=== PATIENT | female | born 1975 | race Caucasian/White ===

== ENCOUNTER 2025-02-23 20:16 | Emergency (ER) | payer OTHER, MEDICAID ==
[~2025-02-23] VITALS: Ht 162.6 cm; Wt 95.9 kg
[~2025-02-23 20:16] MED LIST: ATOR10TA52 PO; BACL-63 PO; FAMO20TA10 PO; HYDR50TA69 PO; LURA40TA2 PO; MAGN400T40 PO; MORP30CA31 PO; NYS15PW TOP; ONDA-144 PO; PROP80CA42 PO; RIZA10TA50 OR; THIA250T7 PO; TRAM50TA2 PO; TRAZ-228 PO; [UNRECOGNIZED DRUG - CODE] PO; [UNRECOGNIZED DRUG - CODE] PO
--- NOTE | 2025-02-23 20:38 | ECG ---
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
[2025-02-23] MEDS: MORPHINE SULFATE INJ 2 MG/ml SYRG IV ONE (20:45)
[2025-02-23 20:49] LABS: Hematocrit 39.9 % (36.0-46.0); Hemoglobin 13.5 g/dL (12.2-16.2); Mean Corpuscular Hemoglobin 30.9 pg (28.0-32.0); Mean Corpuscular Volume 91.3 fL (80.0-100.0); Nucleated Red Blood Cells % 0.1 %
--- NOTE | 2025-02-23 21:02 | ED.PDOC ---
History of Present Illness HPI Comments 49 year old female with PMHx HTN, HLD, bipolar disorder, presents to the ED with a chief complaint of chest pain onset today around 18:30. Per EMS, patient was experiencing chest pain, called 911. Patient had EKG done 2 days ago prior to spinal ablation procedure, showed possible RT side blockage, was placed on beta vick. Patient states she took beta vick, 15 minutes after began experiencing chest pain described as pressure sensation, rates pain 8/10, aspirin was given by EMS in route to ED, pain improved to 5/10, She is currently experiencing shortness of breath, dizziness, nausea. Denies cough, cold,congestion, headache, blurred vision, numbness/tingling. No other symptoms or modifying factors present at this time. PHYSICAL EXAM: General: Awake, alert and oriented. No acute distress. Skin: Skin in warm, dry and intact. Appropriate color for ethnicity. HEENT: The head is normocephalic and atraumatic. Conjunctivae are clear without exudates or hemorrhage. Sclera is non-icteric. Eyelids are normal in appearance without swelling or lesions. Oral mucosa is pink and moist Neck: The neck is supple with normal range of motion. No JVD. Cardiac: Heart rate and rhythm are normal. No murmurs, gallops, or rubs are auscultated. Respiratory: No signs of respiratory distress. Lung sounds are clear in all lobes bilaterally without rales, rhonchi, or wheezes. Abdominal: Abdomen is soft, non-tender without distention, guarding or rigidity. Bowel sounds are present and normoactive in all four quadrants. Extremities: Upper and lower extremities are atraumatic in appearance without deformity or edema. Neurological: The patient is awake, alert and oriented to person, place, and time with normal speech. Speech is clear. There is no facial asymmetry. Psychiatric: Appropriate mood and affect. Good judgement and insight. REVIEW OF SYSTEMS: General: No fever, no chills, or fatigue HEENT: No sore throat, no earache, no congestion, no neck pain. Cardiac: chest pain. No palpitations. Lungs: shortness of breath, no cough. GI: nausea. no vomiting, no diarrhea, no constipation, no abdominal pain : No dysuria, frequency, or urgency. No hematuria. Musculoskeletal: No joint pain , no joint swelling, no extremity edema. Skin: No rash, no itching. Neuro: Dizziness. No headache, no weakness (And as sated in HPI) Chief Complaint: Chest Pain Time Seen by MD: 20:24 Primary Care Provider: SUPRIYA Reviewed Notes: Medications, Allergies Allergies: Coded Allergies: Acetaminophen (Unverified Allergy, Unknown, 11/08/14) Amoxicillin (Unverified Allergy, Unknown, 11/08/14) Hydrocodone (Unverified Allergy, Unknown, 11/08/14) Hydromorphone (Unverified Allergy, Unknown, 11/08/14) Valproic Acid (Unverified Allergy, Unknown, 11/08/14) Home Meds Reported Medications Norgestrel & Ethinyl Estradiol (Cryselle-28) 28 Tabs Tab, 1 TAB PO DAILY, #28 TAB 11 Refills 11/08/14 Nystatin (Mycostatin) 1 Applic Ap, 1 APPLIC TOP 11/08/14 Magnesium Oxide (MAGNESIUM OXIDE) 400 Mg Tab, 1 TAB PO DAILY, #30 TAB 5 Refills 11/08/14 Ondansetron (Zofran) 4 Mg Tab, 1 TAB PO Q6HR, #20 TAB 11/08/14 Atorvastatin Calcium (ATORVASTATIN CALCIUM) 10 Mg Tab, 1 TAB PO DAILY, #30 TAB 5 Refills 11/08/14 Propranolol Hcl (Innopran Xl) 80 Mg Cap, 10 MG PO, CAP 11/08/14 Trazodone Hcl (Trazodone Hcl) 100 Mg Tab, 1 TAB PO QPM, #30 TAB 1 Refill 11/08/14 Baclofen (ED BACLOFEN) 10 Mg Tab, 1 TAB PO TID, #90 TAB 2 Refills 11/08/14 Morphine Sulfate (MORPHINE SULFATE ER) 30 Mg Cap, 30 MG PO DAILY, CAP 11/08/14 Famotidine (PEPCID TABLET) 20 Mg Tb, 1 TAB PO BID, #60 TAB 5 Refills 11/08/14 Zolpidem & Dietary Management (GABAZOLPIDEM-5) 5 Mg Sherif, 5 MG PO HS 11/08/14 Tramadol Hcl (Tramadol Hcl) 50 Mg Tab, 50 MG PO Q8HP PRN for BREAKTHROUGH PAIN, TAB 11/08/14 Hydroxyzine Hcl (Hydroxyzine Hcl) 50 Mg Tab, 1 TAB PO TID, #90 TAB 2 Refills 11/08/14 Lurasidone Hydrochloride (LATUDA) 40 Mg Tab, 40 MG PO DAILY, TAB 11/08/14 Thiamine Hcl (Vitamin B1) 250 Mg Tab, 250 MG PO, TAB 11/08/14 Rizatriptan Benzoate (RIZATRIPTAN BENZOATE) 10 Mg Tab, 10 MG OR, TAB 11/08/14 Information Source: Patient, Emergency Med Personnel Mode of Arrival: EMS Severity: Moderate Timing: Hours Duration: Since onset Prehospital treatment: Other (aspirin) Past Medical History PAST MEDICAL HISTORY: Anxiety, Depression, High Lipids Surgical History: Cholecystectomy, 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 Was a procedure done?: No Differential Dx Considerations may include: Differential diagnoses considered include acute ischemic coronary syndrome, aortic dissection, cardiac tamponade, mediastinitis, pulmonary embolus, pneumothorax, tension pneumothorax, esophageal rupture, coronary artery vasospasm, myocarditis, pericarditis, pneumonia, pulmonary edema, esophageal tear, pancreatitis, aortic stenosis, dilated cardiomyopathy, hypertrophic cardiomyopathy, mitral valve prolapse, malignancy, pleuritis, pneumomediastinum, primary pulmonary hypertension, cholecystitis, esophageal spasm, esophagus, gastritis, GERD, peptic ulcer disease, costochondritis, fibromyalgia, rib fracture, herpes zoster, radicular syndromes, thoracic outlet syndrome, somatization. X-Ray, Labs, Meds, VS Vital Signs Date Time Temp Pulse Resp B/P (MAP) Pulse Ox O2 Delivery O2 Flow Rate FiO2 02/23/25 21:32 85 02/23/25 20:20 98.2 96 14 118/74 99 98.2 02/23/25 20:18 96 Lab Test 02/23/25 21:25 02/23/25 20:29 Range/Units Troponin I High Sensitivity 6 5 </=34 ng/L White Blood Count 6.6 4.4-10.8 10^3/uL Red Blood Count 4.36 4.0-5.20 10^6/uL Hemoglobin 13.5 12.2-16.2 g/dL Hematocrit 39.9 36.0-46.0 % Mean Corpuscular Volume 91.3 80.0-100.0 fL Mean Corpuscular Hemoglobin 30.9 28.0-32.0 pg Mean Corpuscular Hemoglobin Concent 33.9 32.0-36.0 g/dL Red Cell Distribution Width 13.1 11.8-14.3 % Platelet Count 240 140-450 10^3/uL Mean Platelet Volume 8.8 6.9-10.8 fL Neutrophils (%) (Auto) 58.7 37.0-80.0 % Lymphocytes (%) (Auto) 29.9 10.0-50.0 % Monocytes (%) (Auto) 7.3 0.0-12.0 % Eosinophils (%) (Auto) 3.5 0.0-7.0 % Basophils (%) (Auto) 0.6 0.0-2.0 % Neutrophils # (Auto) 3.9 1.6-8.6 10 ^3/uL Lymphocytes # (Auto) 2.0 0.4-5.4 10 ^3/uL Monocytes # (Auto) 0.5 0-1.3 10 ^3/uL Eosinophils # (Auto) 0.2 0-0.8 10 ^3/uL Basophils # (Auto) 0 0-0.2 10 ^3/uL Nucleated Red Blood Cells 0.1 % Sodium Level 141 136-145 mmol/L Potassium Level 3.4 L 3.5-5.1 mmol/L Chloride Level 104 98-107 mmol/L Carbon Dioxide Level 26 20-31 mmol/L Anion Gap 11 5-15 Blood Urea Nitrogen 12 9-23 mg/dL Creatinine 0.92 0.550-1.02 mg/dL Glomerular Filtration Rate Calc 76 >90 mL/min BUN/Creatinine Ratio 13.0 10.0-20.0 Serum Glucose 86 74-106 mg/dL Calcium Level 9.7 8.7-10.4 mg/dL B-Type Natriuretic Peptide 6.74 0-100 pg/mL [address] [address] Ph: [phone] DIAGNOSTIC IMAGING Diagnostic Imaging Report : [id number] Signed PATIENT: KARIME GAMA ACCT: [id number] UNIT: [id number] : 1975 LOC: ER ROOM / BED: / AGE / SEX: 49 / F ADM STATUS: REG ER SERVICE 38 ORDERING PHYSICIAN: JESSY LUCAS MD PROCEDURE(s): CXR1 - CHEST XRAY 1 VIEW REASON: cp ORDER NUMBER(s): [id number], ACCESSION NUMBER(s): [id number] CHEST RADIOGRAPH Indication: cp Technique: Single frontal view of the chest was obtained Comparison: None FINDINGS: Lines and Tubes: None Lungs: No focal consolidation. Pleura: No effusion. No pneumothorax. Cardiomediastinal contours: Unremarkable Bones: No acute osseous abnormality. IMPRESSION: 1. No acute cardiopulmonary disease. ATED BY: HEIDE ALLEN Jr., DO DICTATED DATE/TIME: 02/23/252106 SIGNED BY: HEIDE ALLEN Jr., DO SIGNED DATE/TIME: 02/23/252106 CC: Time of 1ST Reevaluation: 20:51 Reevaluation 1ST: Unchanged Patient Education/Counseling: Need For Follow Up Family Education/Counseling: No Family Present SEPSIS Sepsis Screen Date sepsis recognized/suspect: Feb 23, 2025 Time Sepsis recognized/suspect: 2019 Recent Procedure: No On Antibiotic Therapy: No Respiratory Rate >20: No Heart Rate >90: Yes Temp<36 C (96.8 F) or >38.3 C: No SBP <90 or MAP <65 mmHG: No New Acute Mental Status Change: No Is the patient on CPAP, BIPAP,: No Physician Orders Electrocardigram (02/23/25 23:27) Saline Lock (02/23/25 20:39) Lathe Setup Operator (02/23/25 ) Chest Xray 1 View (02/23/25 20:39) Vital Signs Q1HR (02/23/25 20:39) Potassium Er Tablet (Klor-Con Tablet) (02/23/25 22:45) Vital Signs Date Time Temp Pulse Resp B/P (MAP) Pulse Ox O2 Delivery O2 Flow Rate FiO2 02/23/25 21:32 85 02/23/25 20:20 98.2 96 14 118/74 99 98.2 02/23/25 20:18 96 Laboratory Tests Test 02/23/25 20:29 White Blood Count 6.6 10^3/uL (4.4-10.8) Departure 1 Departure Time of Disposition: 22:41 Impression: Primary Impression: Chest pain Disposition: HOME / SELF CARE / HOMELESS Condition: Stable Additional Instructions: ED DISCHARGE INSTRUCTIONS Instructions: Please read all instructions provided in this packet carefully. Although you have been discharged from the Emergency Department, this does not mean that you have a "clean bill of health". No definitive diagnosis for your symptoms has been made today. It is possible that you are in the process of developing a serious illness. This is why you must return to the ED without fail if any new or worsening symptoms (especially if your symptoms include chest pain, trouble breathing, abdominal pain, fever, headache, confusion, trouble seeing, or trouble walking) It is also very important that you see a primary care provider (PCP) within the next 3-5 days to follow up. If you are unable to get an appointment, return to the ED for re-evaluation. CHEST PAIN EDUCATION There are many things that can cause chest pain. Some are not serious and will get better on their own in a few days. But some kinds of chest pain need more testing and treatment. Your doctor may have recommended a follow-up visit in the next few days. If you are not getting better, you may need more tests or treatment. Even though your doctor has released you, you still need to watch for any problems. The doctor carefully checked you, but sometimes problems can develop later. If you have new symptoms or if your symptoms do not get better, get medical care right away. If you have worse or different chest pain or pressure that lasts more than 5 minutes or you passed out (lost consciousness), call 911 or seek other emergency help right away. A medical visit is only one step in your treatment. Even if you feel better, you still need to do what your doctor recommends, such as going to all suggested follow-up appointments and taking medicines exactly as directed. This will help you recover and help prevent future problems. How can you care for yourself at home? Rest until you feel better. Take your medicine exactly as prescribed. Call your doctor if you think you are having a problem with your medicine. Do not drive after taking a prescription pain medicine. When should you call for help? Call 911 if: You passed out (lost consciousness). You have severe difficulty breathing. You have symptoms of a heart attack. These may include: Chest pain or pressure, or a strange feeling in your chest. Sweating. Shortness of breath. Nausea or vomiting. Pain, pressure, or a strange feeling in your back, neck, jaw, or upper belly or in one or both shoulders or arms. Lightheadedness or sudden weakness. A fast or irregular heartbeat. After you call 911, the transcribing operators supervisor may tell you to chew 1 adult-strength or 2 to 4 low-dose aspirin. Wait for an ambulance. Do not try to drive yourself. Call your doctor now or seek immediate medical care if: You have any trouble breathing. You have new or different chest pain. You are dizzy or lightheaded, or you feel like you may faint. Watch closely for changes in your health, and be sure to contact your doctor if you do not get better as expected. Current as of: November 12, 2023 Author: [employer] Staff? Comments MDM: 49-year-old female who presented with chest pain. Serial EKG negative for signs of ischemia. Serial High sensitivity troponin negative. CXR shows no acute process. Presentation not suggestive of acute coronary syndrome, pulmonary embolism or aortic dissection. Patient improved at time of discharge. Patient has not been hypoxic, in respiratory distress or dyspneic during the ED observation. Patient able to ambulate without difficulty. Patient felt stable for discharge to follow up with PCP promptly. Patient advised to return to the ED with any new, worsening or concerning symptoms or inability to follow up with PCP. - I reviewed the following notes from the pt's past medical encounters: N/A The following tests were ordered, and results were reviewed by me: (See diagnostic results section) The following test were independently interpreted by me: EKG, chest x-ray-no acute disease Additional information was gathered from interviewing the following independent historians: EMS personnel I reviewed and agreed with the following test results read by other providers: Chest x-ray I discussed treatments and results with patient Decision regarding hospitalization or escalation of hospital level of care: Risks and benefits of admission for further treatment of patient's condition was considered however due to patient's stable condition patient will be discharged to follow up closely or return to care for worsening of condition or inability to follow up. Critical Care Note Critical Care Time?: No Stability Stability form required: No Heart Score Heart Score: Heart Score Response (Comments) Value History Slightly Suspicious 0 EKG Normal 0 Age 45-64 1 Risk Factors 1 or 2 risk factors 1 Troponin Normal limit 0 Total 2 I personally scribed for JESSY LUCAS MD ([email or web address]) on 02/23/25 at 21:02. Electronically submitted by Maryanne Francisco ([email or web address]). I personally scribed for JESSY LUCAS MD ([email or web address]) on 02/23/25 at 21:24. Electronically submitted by Maryanne Francisco ([email or web address]). JESSY LUCAS MD Feb 23, 2025 21:02
[2025-02-23 21:08] LABS: Chloride 104 mmol/L (98-107); Sodium 141 mmol/L (136-145)
[2025-02-23 21:09] LABS: Anion Gap 11 (5-15); Carbon Dioxide 26 mmol/L (20-31)
--- NOTE | 2025-02-23 21:09 | DVH ---
CHEST RADIOGRAPH Indication: cp Technique: Single frontal view of the chest was obtained Comparison: None FINDINGS: Lines and Tubes: None Lungs: No focal consolidation. Pleura: No effusion. No pneumothorax. Cardiomediastinal contours: Unremarkable Bones: No acute osseous abnormality. IMPRESSION: 1. No acute cardiopulmonary disease.
[2025-02-23 21:10] LABS: Calcium 9.7 mg/dL (8.7-10.4)
[2025-02-23 21:14] LABS: Glucose 86 mg/dL (74-106)
[2025-02-23 21:15] LABS: BUN/Creatinine Ratio 13.0 (10.0-20.0); Blood Urea Nitrogen 12 mg/dL (9-23)
[2025-02-23 21:20] LABS: Potassium 3.4 mmol/L (3.5-5.1)
--- NOTE | 2025-02-23 21:35 | ECG ---
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
[2025-02-23 22:48] VITALS: BP 103/69; TEMP 97.7; O2SAT 98
[2025-02-23] MEDS: POTASSIUM CHL 20 Meq TABLET PO ONE (22:56)
[2025-02-23 23:01] VITALS: PULSE 72; RESP 18
== END 2025-02-23 23:03 | disposition home or self-care (01) ==
LOC: ER 20:16 → EDBD 20:16 → ER 23:03
DX: R07.89 Other chest pain (principal); F41.9 Anxiety disorder, unspecified; F32.A Depression, unspecified; I10 Essential (primary) hypertension; Z79.899 Other long term (current) drug therapy; Z88.5 Allergy status to narcotic agent; Z90.49 Acquired absence of other specified parts of digestive tract; Z88.0 Allergy status to penicillin
CPT/HCPCS: 36415; 71045; 80048; 82947; 83880; 84484; 85025; 93005